=== PATIENT | female | born 1985 | race American Indian/Alaskan Native ===

== ENCOUNTER 2022-02-10 23:10 | Emergency (ER) | payer MEDICAID ==
--- NOTE | 2022-02-11 08:32 | Emergency Department Report ---
ED General Adult HPI - General Chief complaint: Nausea/Vomiting/Diarrhea Stated complaint: LOSS OF APPETITE/EMESIS/BODY CRAMPS Time Seen by Provider: 02/11/22 07:01 Source: patient Mode of arrival: Ambulatory Limitations: No Limitations - History of Present Illness Initial comments: 36-year-old female no significant past medical history reports to the ER with decreased appetite with nausea and vomiting no diarrhea for 5 days. Patient denies any abdominal pain. Patient denies any suspicious food intake. Patient denies any sick contacts with similar symptoms. Patient reports she recently changed her pressures at work and has not been having her consistent eating routine. Patient also reports right ear external pain due to insect bite. No other acute signs or symptoms reported this time. Severity scale (0 -10): 0 - Related Data Previous Rx's Medication Instructions Recorded Last Taken Type Acyclovir [Zovirax Tab] 400 mg PO Q12H #60 tablet 05/03/15 Unknown Rx Ondansetron [Zofran Odt] 4 mg PO Q12HR PRN 3 Days #6 02/11/22 Unknown Rx tab.rapdis Allergies Allergy/AdvReac Type Severity Reaction Status Date / Time diphenhydramine HCl Allergy Hives Verified 05/03/15 15:03 [From Benadryl] ED Review of Systems ROS: Stated complaint: LOSS OF APPETITE/EMESIS/BODY CRAMPS Other details as noted in HPI Comment: All other systems reviewed and negative Eyes: eye pain (Right ear) Gastrointestinal: nausea, vomiting. denies: abdominal pain, diarrhea ED Past Medical Hx - Past Medical History Previous Medical History?: No Additional medical history: Genital herpes - Surgical History Past Surgical History?: No - Social History Smoking Status: Current Every Day Smoker Substance Use Type: Alcohol - Medications Home Medications: Home Medications Medication Instructions Recorded Confirmed Last Taken Type Acyclovir [Zovirax Tab] 400 mg PO Q12H #60 tablet 05/03/15 Unknown Rx Ondansetron [Zofran Odt] 4 mg PO Q12HR PRN 3 Days #6 02/11/22 Unknown Rx tab.rapdis ED Physical Exam - General Limitations: No Limitations General appearance: alert, in no apparent distress - Head Head exam: Present: atraumatic, normocephalic - Eye Eye exam: Present: normal appearance - ENT ENT exam: Present: mucous membranes moist - Neck Neck exam: Present: normal inspection - Respiratory Respiratory exam: Present: normal lung sounds bilaterally. Absent: respiratory distress - Cardiovascular Cardiovascular Exam: Present: regular rate, normal rhythm. Absent: systolic murmur, diastolic murmur, rubs, gallop - GI/Abdominal GI/Abdominal exam: Present: soft, normal bowel sounds - Extremities Exam Extremities exam: Present: normal inspection - Back Exam Back exam: Present: normal inspection - Neurological Exam Neurological exam: Present: alert, oriented X3 - Psychiatric Psychiatric exam: Present: normal affect, normal mood - Skin Skin exam: Present: warm, dry, intact, normal color. Absent: rash ED Course Vital Signs 02/10/22 23:16 Temperature 98.9 F Pulse Rate 109 H Respiratory 17 Rate Blood Pressure 147/102 [Left] O2 Sat by Pulse 99 Oximetry ED Medical Decision Making - Medical Decision Making 36-year-old female no significant past medical history reports to the ER with decreased appetite with nausea and vomiting no diarrhea for 5 days. Patient denies any abdominal pain. Patient denies any suspicious food intake. Patient denies any sick contacts with similar symptoms. Patient reports she recently changed her pressures at work and has not been having her consistent eating routine. Patient also reports right ear external pain due to insect bite. No other acute signs or symptoms reported this time. Patient reports she is able to maintain oral hydration by drinking water and juices daily. On physical exam no acute clinical findings noted. Patient had a slight bite malou/scratch malou to the lower aspect of her right ear. No infection noted. TM intact. Ear canal with no acute process noted no erythema noted no tenderness noted. No abdominal pain noted. No imaging or labs are needed at this time. Patient informed to try a clear liquid and advance as tolerated to her normal diet routine. Patient agrees with plan of care and verbalized understanding. Patient to receive nausea medication here in the ER as well as discharged home with nausea medication. Patient informed to follow her primary care provider as needed. No further evaluation at this time. Vital Signs 02/10/22 23:16 Temperature 98.9 F Pulse Rate 109 H Respiratory 17 Rate Blood Pressure 147/102 [Left] O2 Sat by Pulse 99 Oximetry Critical care attestation.: If time is entered above; I have spent that time in minutes in the direct care of this critically ill patient, excluding procedure time. ED Disposition Clinical Impression: Right ear pain Nausea and vomiting Qualifiers: Vomiting type: unspecified Qualified Code(s): R11.2 - Nausea with vomiting, unspecified Disposition: 01 HOME / SELF CARE / HOMELESS Is pt being admited?: No Condition: Stable Instructions: Nausea and Vomiting, Adult, Pain Without a Known Cause Prescriptions: Ondansetron [Zofran Odt] 4 mg PO Q12HR PRN 3 Days #6 tab.rapdis PRN Reason: Nausea and vomiting
[2022-02-11] MEDS ORDERED: ONDANSETRON 4 MG ODT TAB PO ONE (08:35)
[2022-02-11 09:01] VITALS: BP 140/84
== END 2022-02-11 09:02 | disposition home or self-care (01) ==
LOC: ED 23:10
DX: H92.01 Otalgia, right ear (principal); R11.2 Nausea with vomiting, unspecified; F17.200 Nicotine dependence, unspecified, uncomplicated; Z72.89 Other problems related to lifestyle; Z79.899 Other long term (current) drug therapy; Z88.8 Allergy status to other drugs, medicaments and biological substances
CPT/HCPCS: 99282; J3490; Q0162